=== PATIENT | male | born 1970 | race Caucasian/White ===

== ENCOUNTER 2018-09-12 08:14 | Emergency (ER) | payer SELFPAY ==
[~2018-09-12] VITALS: Ht 175.3 cm; Wt 110.0 kg
[2018-09-12] MEDS ORDERED: CYCLOBENZAPRINE 10MG TABLET PO ONE (09:45)
[2018-09-12] MEDS ORDERED: KETOROLAC 60MG/2ML VIAL IM ONE (09:45)
[2018-09-12] MEDS ORDERED: HYDROCODONE/ACETAMINOPHEN 5/325MG TABLET PO ONE (10:45)
[2018-09-12 11:40] VITALS: BP 149/82
== END 2018-09-12 11:44 | disposition home or self-care (01) ==
LOC: ER 08:14
DX: M54.5 Low back pain (principal); R42 Dizziness and giddiness; J45.909 Unspecified asthma, uncomplicated; V89.2XXA Person injured in unspecified motor-vehicle accident, traffic, initial encounter; Y93.89 Activity, other specified; Y92.89 Other specified places as the place of occurrence of the external cause; Y99.8 Other external cause status
CPT/HCPCS: 93005; 96372; 99284; J1885; Z7610